=== PATIENT | female | born 1970 | race Caucasian/White ===

== ENCOUNTER → 2016-08-21 | Outpatient (CLI) | payer BC ==
[~2016-08-21] MED LIST: NO DAILY MEDICATIONS
--- NOTE | 2016-08-22 08:32 | DI ---
INDICATION: ITS.REASON: R02.02 SHORTNESS OF BREATH PROCEDURE: CHEST 2-VIEWS UPRIGHT (PA \T\ LAT) Encounter: Initial COMPARISON: None FINDINGS: The lungs are clear without evidence of focal abnormal airspace opacity. There is no pleural effusion or pneumothorax. The heart size, mediastinal contours and pulmonary vascularity are within normal limits. There is no significant skeletal abnormality. IMPRESSION: No acute cardiopulmonary disease. .
== END ==
LOC: IMA.CCC 17:57
PROVIDERS: ATTEND Nurse Practitioner
DX: R06.02 Shortness of breath (principal)

== ENCOUNTER → 2016-09-11 | Outpatient (CLI) | payer BC ==
[2016-09-11 19:12] LABS: BASOPHILS % (AUTO) 0.3 % (0-2); EOSINOPHILS # (AUTO) 0.1 T/MM3 (0-0.5); HCT - HEMATOCRIT 35.9 % (36-46); HGB - HEMOGLOBIN 12.1 GM/DL (12-16); IMMATURE GRANULOCYTE # (AUTO) 0.02 T/MM3 (0.00-0.03); IMMATURE GRANULOCYTE % (AUTO) 0.2 % (0.0-0.5); LYMPHOCYTES # (AUTO) 3.8 T/MM3 (1-4.8); LYMPHOCYTES % (AUTO) 32.3 % (23-45); MEAN CORPUSCULAR HGB 29.6 UUG (26-34); MEAN CORPUSCULAR HGB CONC(MCHC 33.7 GM/DL (31-37); MEAN CORPUSCULAR VOLUME 87.8 UM3 (80-100); MEAN PLATELET VOLUME 9.4 UM3 (9.4-12.4); MONOCYTES # (AUTO) 0.7 T/MM3 (0-0.8); MONOCYTES % (AUTO) 5.8 % (0-9.0); NEUTROPHILS #(AUTO)-ABSOLUTE 7.2 T/MM3 (1.8-7.7); NEUTROPHILS % (AUTO) 60.4 % (33-66); RED BLOOD COUNT 4.09 M/MM3 (4.00-5.20); WBC - WHITE BLOOD COUNT 11.8 T/MM3 (4.5-11.0)
[2016-09-11 19:19] LABS: ALBUMIN 4.5 G/DL (3.5-5.0); ALBUMIN/GLOBULIN RATIO 1.6 RATIO (1.1-2.2); ALKALINE PHOSPHATASE 72 U/L (38-126); ALT (SGPT) 36 U/L (9-52); ANION GAP 14 MEQ/L (5-15); AST (SGOT) 19 U/L (14-36); BUN/CREATININE RATIO 15 RATIO (6-26); CALCIUM 9.7 MG/DL (8.4-10.2); CHLORIDE 104 MEQ/L (98-107); CO2 - CARBON DIOXIDE 26 MEQ/L (22-30); CREATININE 0.8 MG/DL (0.7-1.2); GLOMERULAR FILTRATION RATE 78; GLUCOSE 117 MG/DL (65-110); POTASSIUM 3.8 MEQ/L (3.6-5); SODIUM 144 MEQ/L (134-144); TOTAL PROTEIN 7.4 G/DL (6.3-8.2)
[2016-09-11 19:50] LABS: THYROID STIM HORMONE-TSH 1.64 MIU/L (0.47-4.68)
== END ==
LOC: LAB 18:51
PROVIDERS: ATTEND Family Medicine
DX: R06.02 Shortness of breath (principal)
CPT/HCPCS: 36415; 80053; 84439; 84443; 85025